=== PATIENT | male | born 1945 | race Caucasian/White ===

== ENCOUNTER → 2024-02-14 | Outpatient (CLI) | payer MEDICARE, BC | LOC: M EKG 10:29 | PROVIDERS: ATTEND Internal Medicine Cardiovascular Disease | DX: I48.3 Typical atrial flutter (principal); I49.3 Ventricular premature depolarization ==

== ENCOUNTER → 2025-02-03 | Outpatient (CLI) | payer MEDICARE, BC | LOC: M EKG 10:35 | PROVIDERS: ATTEND Registered Nurse | DX: I48.3 Typical atrial flutter (principal) ==

== ENCOUNTER → 2025-07-09 | Outpatient (CLI) | payer MEDICARE, BC | LOC: M EKG 09:54 | PROVIDERS: ATTEND Registered Nurse | DX: I44.0 Atrioventricular block, first degree (principal) ==